=== PATIENT | female | born 2000 | race Caucasian/White ===

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

== ENCOUNTER 2021-03-29 14:14 | Emergency (ER) | payer MEDICAID ==
[2021-03-29 15:33] LABS: CORONAVIRUS 229E-RESP PCR NOT DETECTED; CORONAVIRUS HKU1-RESP PCR NOT DETECTED; CORONAVIRUS NL63-RESP PCR NOT DETECTED; CORONAVIRUS OC43-RESP PCR NOT DETECTED
[2021-03-29 15:34] LABS: B. PARAPERTUSSIS- RESP PCR PAN NOT DETECTED; B. PERTUSSIS- RESP PCR PANEL NOT DETECTED; C. PNEUMONIAE- RESP PCR PANEL NOT DETECTED; HUMAN METAPNEUMOVIRUS NOT DETECTED; INFLUENZA A- RESP PCR PANEL NOT DETECTED; INFLUENZA B - RESP PCR PANEL NOT DETECTED; M. PNEUMONIAE- RESP PCR PANEL NOT DETECTED; PARAINFLUENZA VIRUS 1 NOT DETECTED; PARAINFLUENZA VIRUS 2 NOT DETECTED; PARAINFLUENZA VIRUS 3 NOT DETECTED; PARAINFLUENZA VIRUS 4 NOT DETECTED; RHINOVIRUS/ENTEROVIRUS NOT DETECTED; RSV- RESP PCR PANEL NOT DETECTED; SARS-CoV-2 -RESP PCR PANEL DETECTED
--- NOTE | 2021-03-29 16:22 | ED Physician Documentation ---
History of Present Illness - Stated complaint Stated Complaint: congestion,migraine,ear px,dizzy,muscle aches - Chief complaint Chief Complaint: General - History obtained from History obtained from: Patient - Additonal information Additional information: 20-year-old who is fully immunized against Covid with Pfizer vaccine became acutely ill 2 days ago with typical symptoms including rhinorrhea, congestion, body aches, headache, bilateral ear pain. Also a little bit of diarrhea 2 days ago. 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, Other : None HEENT: None Psych: None Musculoskeletal: None Derm: None - Past Surgical History Past Surgical History: Yes General: Appendectomy HEENT: Tonsil/Adenoidectomy - Present Medications Home Medications: Ambulatory Orders Medication Instructions Recorded Confirmed Cyclobenzaprine HCl 5 mg PO PRN PRN 12/09/20 12/18/20 HYDROcod/ACETAM 5/325 [[place] 5/325] 1 - 2 tablet PO Q6H PRN #10 tablet 12/09/20 12/18/20 methocarbamoL [Methocarbamol] 750 mg PO PRN PRN 12/09/20 12/18/20 metroNIDAZOLE VAGINAL GEL 1 appful VG BID #70 gm 12/19/20 [Metrogel] Clindamycin [Cleocin] 300 mg PO TID 7 Days #20 cap 12/27/20 Fluconazole [Diflucan] 150 mg PO Q3D #2 tablet 12/27/20 Naproxen Sodium [Naprelan] 375 mg PO BID PRN #20 tab 12/27/20 oxyCODONE [Roxicodone] 5 mg PO Q4-6H PRN #12 tablet 12/27/20 Benzonatate [Tessalon] 200 mg PO QID PRN #20 cap 03/29/21 Ibuprofen [Motrin] 800 mg PO Q8H PRN #30 tablet 03/29/21 - Allergies Allergies/Adverse Reactions: Allergies Allergy/AdvReac Type Severity Reaction Status Date / Time amoxicillin Allergy Anaphylaxis Verified 03/29/21 14:25 Penicillins Allergy Anaphylaxis Verified 03/29/21 14:25 - Social History Does the pt smoke?: No Smoking Status: Never smoker Does the pt drink ETOH?: Yes Does the pt have substance abuse?: No - Immunizations Immunizations are current?: Yes - POLST Patient has POLST: No PD ED PE NORMAL - Vitals Vital signs reviewed: Yes - General General: Alert and oriented X 3, No acute distress - HEENT HEENT: Ears normal (TMs are normal bilaterally), Pharynx benign - Cardiac Cardiac: RRR, No murmur - Respiratory Respiratory: No respiratory distress, Clear bilaterally - Abdomen Abdomen: Non tender - Neuro Neuro: Alert and oriented X 3, Normal speech Results - Vitals Vitals: Vital Signs - 24 hr 03/29/21 03/29/21 03/29/21 14:18 17:41 19:32 Temperature 36 C L 36.6 C Heart Rate 89 90 88 Respiratory 16 16 16 Rate Blood Pressure 129/74 132/74 H 116/71 O2 Saturation 98 99 99 Oxygen O2 Source Room air - Labs Labs: Laboratory Tests 03/29/21 14:25 Nasal Adenovirus (PCR) NOT DETECTED Nasal B. parapertussis DNA (PCR) NOT DETECTED Nasal Coronavir 229E PCR NOT DETECTED Nasal Coronavir HKU1 PCR NOT DETECTED Nasal Coronavir NL63 PCR NOT DETECTED Nasal Coronavir OC43 PCR NOT DETECTED Nasal Enterovir/Rhinovir PCR NOT DETECTED Nasal Influenza B PCR NOT DETECTED Nasal Influenza A PCR NOT DETECTED Nasal Parainfluen 1 PCR NOT DETECTED Nasal Parainfluen 2 PCR NOT DETECTED Nasal Parainfluen 3 PCR NOT DETECTED Nasal Parainfluen 4 PCR NOT DETECTED Nasal RSV (PCR) NOT DETECTED Nasal B.pertussis DNA PCR NOT DETECTED Nasal C.pneumoniae (PCR) NOT DETECTED Nav Human Metapneumo PCR NOT DETECTED Nasal M.pneumoniae (PCR) NOT DETECTED Nasal SARS-CoV-2 (PCR) DETECTED A PD MEDICAL DECISION MAKING - ED course ED course: 20-year-old presents with typical symptoms of Covid and a positive test despite being immunized recently for same. After discussion she would like to go ahead with antibody therapy and was given Regeneron infusion. Departure - Departure Disposition: 01 Home, Self Care Clinical Impression: COVID-19 Condition: Good Record reviewed to determine appropriate education?: Yes Instructions: ED Viral Syndrome Prescriptions: Ibuprofen [Motrin] 800 mg PO Q8H PRN #30 tablet PRN Reason: PAIN &/OR FEVER Benzonatate [Tessalon] 200 mg PO QID PRN #20 cap PRN Reason: Cough Comments: Return anytime if worse or if new symptoms develop. Forms: Activity restrictions Discharge Date/Time: 03/29/21 19:43
[2021-03-29] MEDS ORDERED: CASIRIVIMAB/IMDEVIMAB 10 ML in SODIUM CHLORIDE 0.9% 50 ML IV ONE (18:00)
[2021-03-29 19:32] VITALS: BP 116/71
== END 2021-03-29 19:43 | disposition home or self-care (01) ==
LOC: ED 14:14
DX: U07.1 COVID-19 (principal)
CPT/HCPCS: 0202U; 99283; 99284; J7040; M0243; Q0244

== ENCOUNTER 2021-05-26 21:24 | Emergency (ER) | payer MEDICAID ==
[2021-05-26 21:32] VITALS: BP 150/84
--- NOTE | 2021-05-26 21:53 | ED Physician Documentation ---
History of Present Illness - Stated complaint Stated Complaint: L ELBOW INJURY - Chief complaint Chief Complaint: Trauma Ext - Additonal information Additional information: 20-year-old female with acute right elbow pain sustained yesterday evening when roughhousing with her partner. He tried pinning her elbow and she has had pain in it since, But only when moving it in certain ways. No swelling or ecchymosis. No history of previous left elbow injury. Patient is right arm dominant. 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, Other : None HEENT: None Psych: None Musculoskeletal: None Derm: None - Past Surgical History Past Surgical History: Yes General: Appendectomy HEENT: Tonsil/Adenoidectomy - Present Medications Home Medications: Ambulatory Orders Medication Instructions Recorded Confirmed Cyclobenzaprine HCl 5 mg PO PRN PRN 12/09/20 12/18/20 HYDROcod/ACETAM 5/325 [[place] 5/325] 1 - 2 tablet PO Q6H PRN #10 tablet 12/09/20 12/18/20 methocarbamoL [Methocarbamol] 750 mg PO PRN PRN 12/09/20 12/18/20 metroNIDAZOLE VAGINAL GEL 1 appful VG BID #70 gm 12/19/20 [Metrogel] Clindamycin [Cleocin] 300 mg PO TID 7 Days #20 cap 12/27/20 Fluconazole [Diflucan] 150 mg PO Q3D #2 tablet 12/27/20 Naproxen Sodium [Naprelan] 375 mg PO BID PRN #20 tab 12/27/20 oxyCODONE [Roxicodone] 5 mg PO Q4-6H PRN #12 tablet 12/27/20 Benzonatate [Tessalon] 200 mg PO QID PRN #20 cap 03/29/21 Ibuprofen [Motrin] 800 mg PO Q8H PRN #30 tablet 03/29/21 - Allergies Allergies/Adverse Reactions: Allergies Allergy/AdvReac Type Severity Reaction Status Date / Time amoxicillin Allergy Anaphylaxis Verified 05/26/21 21:32 Penicillins Allergy Anaphylaxis Verified 05/26/21 21:32 - Social History Does the pt smoke?: No Smoking Status: Never smoker Does the pt drink ETOH?: Yes Does the pt have substance abuse?: No - Immunizations Immunizations are current?: Yes - POLST Patient has POLST: No PD ED PE EXPANDED - Extremities Extremities: Left elbow (Normal flexion extension of the elbow against resistance. Patient is able to pronate and supinate left hand without pain elicited. There is some mild pain elicited with full extension of the elbow. No tenderness at either olecranon process.) Results - Vitals Vitals: Vital Signs - 24 hr 05/26/21 21:28 Temperature 36.5 C Heart Rate 108 H Respiratory 16 Rate Blood Pressure 150/84 H O2 Saturation 99 Oxygen O2 Source Nasal cannula PD MEDICAL DECISION MAKING - ED course Complexity details: considered differential, d/w patient ED course: 20-year-old female with acute left elbow pain sustained after roughhousing with her partner. She does not remember an inciting event while playing but developed pain shortly thereafter. Pain is only elicited when she moves it in certain ways and it is not always reproducible or reliable. No swelling or ecchymosis no fevers. I did offer x-ray imaging but she declined she is quite certain the elbow is not broken. She is requesting a sling as she finds that holding the arm in that position is helpful. She was also given an Tony bandage. Discussed likely etiology of her symptoms is an elbow sprain but if symptoms not markedly better after 1 to 2 weeks further evaluation is warranted. Departure - Departure Disposition: 01 Home, Self Care Clinical Impression: Other sprain of left elbow, initial encounter Instructions: ED Sprain Elbow Comments: Elo you do have pain in your left elbow with certain movements. You most likely have sprained it when rough housing with your partner In general I would recommend that you wear the Tony bandage on your elbow when out of bed for the next 7 to 10 days. You can take ibuprofen 600 mg with food 2-3 times a day. In most simple cases conservative care like this should help improve pain over 7 to 10 days. If not markedly better at that time your primary doctor may benefit from making a referral for you to physical therapy and/or further evaluation with advanced imaging.
== END 2021-05-26 22:05 | disposition home or self-care (01) ==
LOC: ED 21:24
DX: S53.402A Unspecified sprain of left elbow, initial encounter (principal); X58.XXXA Exposure to other specified factors, initial encounter
CPT/HCPCS: 99281; 99283

== ENCOUNTER 2021-10-20 20:41 | Outpatient (CLI) | payer MEDICAID | END 2021-10-20 20:42 | disposition EMS.NT | LOC: EMS 20:41 | DX: R19.7 Diarrhea, unspecified (principal); R11.10 Vomiting, unspecified ==

== ENCOUNTER 2022-05-20 13:56 | Outpatient (CLI) | payer MEDICAID, OTHER ==
[2022-05-20 14:42] LABS: THYROID STIMULATING HORMONE 1.2 uIU/mL (0.34-5.60)
[2022-05-20 14:44] LABS: FREE T4 (FREE THYROXINE) 0.84 ng/dL (0.58-1.64)
[2022-05-20 20:22] LABS: ESTIMATED AVERAGE GLUCOSE 97 mg/dL (70-100)
== END 2022-05-20 13:57 | disposition home or self-care (01) ==
LOC: LAB 13:56
PROVIDERS: ATTEND Nurse Practitioner
DX: E66.9 Obesity, unspecified (principal)
CPT/HCPCS: 36415; 83036; 84439; 84443

== ENCOUNTER 2022-05-24 12:51 | Outpatient (CLI) | payer OTHER ==
[2022-05-24 18:07] LABS: BILIRUBIN,URINE NEGATIVE (NEGATIVE); GLUCOSE, URINE (UA) NEGATIVE (NEGATIVE); KETONES,URINE (UA) NEGATIVE (NEGATIVE); LEUKOCYTE ESTERASE, URINE MODERATE (NEGATIVE); NITRITE,URINE NEGATIVE (NEGATIVE); OCCULT BLOOD,URINE TRACE-INTA (NEGATIVE); PH,URINE 5.5 PH (5.0-7.5); PROTEIN,URINE NEGATIVE (NEGATIVE); UROBILINOGEN,URINE 0.2 (NORMAL) E.U./dL (NORMAL)
[2022-05-24 18:10] LABS: CLARITY,URINE CLOUDY (CLEAR)
[2022-05-24 18:22] LABS: AMORPHOUS SEDIMENT,UR Marked /LPF; BACTERIA,URINE Few /HPF (None Seen); RBC,URINE 0-5 /HPF (0-5); SQUAMOUS EPITHELIAL CELL,UR MOD Squamous (<= Few); WBC,URINE >25 /HPF (0-5)
[2022-05-24 18:33] LABS: PROLACTIN 7.32 ng/mL
[2022-05-24 18:55] LABS: FOLLICLE STIMULATING HORMONE 5.95 mIU/mL; LUTEINIZING HORMONE 7.8 mIU/mL
[2022-05-25 00:03] LABS: CHLAMYDIA TRACHOMATIS DNA NEGATIVE (NEGATIVE); NEISSERIA GONORRHOEAE DNA NEGATIVE (NEGATIVE)
[2022-05-25 00:14] LABS: BACTERIAL VAGINOSIS DNA NEGATIVE (NEGATIVE); CANDIDA GLABRATA DNA NEGATIVE (NEGATIVE); CANDIDA GROUP DNA POSITIVE (NEGATIVE); CANDIDA KRUSEI DNA NEGATIVE (NEGATIVE); TRICHOMONAS VAGINALIS DNA NEGATIVE (NEGATIVE)
[2022-05-25 04:08] LABS: HBsAG SCREEN Negative (Negative); HCV AB <0.1 s/co ratio (0.0-0.9)
[2022-05-25 07:10] LABS: ESTRADIOL 28.9 pg/mL (.); PROGESTERONE 0.4 ng/mL (.)
[2022-05-25 08:09] LABS: RPR Non Reactive (Non Reactive)
[2022-05-25 11:10] LABS: HSV 1 IGG TYPE SPEC 2.75 index (0.00-0.90); HSV 2 IGG TYPE SPEC 9.04 index (0.00-0.90)
[2022-05-25 20:08] LABS: FREE TESTOSTERONE(DIRECT) 6.4 pg/mL (0.0-4.2); SEX HORM BINDING GLOB SERUM 27.6 nmol/L (24.6-122.0); TESTOSTERONE 39 ng/dL (13-71)
[2022-05-26 00:07] LABS: HIV SCREEN 4TH GENERATION Non Reactive (Non Reactive)
== END 2022-05-24 12:52 | disposition home or self-care (01) ==
LOC: LAB.N 12:51
PROVIDERS: ATTEND Nurse Practitioner
DX: E28.2 Polycystic ovarian syndrome (principal); L68.0 Hirsutism; N92.6 Irregular menstruation, unspecified; Z11.3 Encounter for screening for infections with a predominantly sexual mode of transmission; N89.8 Other specified noninflammatory disorders of vagina
CPT/HCPCS: 36415; 81001; 81514; 82397; 82627; 82670; 83001; 83002; 83498; 84144; 84146; 84270; 84402; 84403; 84443; 86592; 86695; 86696; 86803; 87086; 87340; 87389; 87491; 87591; 87661

== ENCOUNTER 2022-06-13 22:48 | Emergency (ER) | payer OTHER, MEDICAID ==
[2022-06-13 22:59] VITALS: BP 141/88
[2022-06-13 23:15] LABS: BILIRUBIN,URINE NEGATIVE (NEGATIVE); GLUCOSE, URINE (UA) NEGATIVE (NEGATIVE); KETONES,URINE (UA) NEGATIVE (NEGATIVE); LEUKOCYTE ESTERASE, URINE NEGATIVE (NEGATIVE); NITRITE,URINE NEGATIVE (NEGATIVE); OCCULT BLOOD,URINE NEGATIVE (NEGATIVE); PROTEIN,URINE NEGATIVE (NEGATIVE); UROBILINOGEN,URINE 0.2 (NORMAL) E.U./dL (NORMAL)
[2022-06-13 23:16] LABS: CLARITY,URINE CLEAR (CLEAR)
[2022-06-13 23:19] LABS: HCG UR QUAL NEGATIVE
[2022-06-13 23:24] LABS: BASOPHILS % (AUTO) 0.3 %; EOSINOPHILS # (AUTO) 0.3 10^3/uL (0.0-0.7); EOSINOPHILS % (AUTO) 1.8 %; HCT - HEMATOCRIT 39.7 % (37.0-47.0); HGB - HEMOGLOBIN 12.9 g/dL (12.0-16.0); LYMPHOCYTES # (AUTO) 2.7 10^3/uL (1.5-3.5); LYMPHOCYTES % (AUTO) 19.2 %; MEAN CORPUSCULAR HEMOGLOBIN 27.1 pg (27.0-31.0); MEAN CORPUSCULAR HGB CONC 32.5 g/dL (32.0-36.0); MEAN CORPUSCULAR VOLUME 83.4 fL (81.0-99.0); MEAN PLATELET VOLUME 10.1 fL (7.9-10.8); MONOCYTES # (AUTO) 1.2 10^3/uL (0.0-1.0); MONOCYTES % (AUTO) 8.7 %; NEUTROPHILS # (AUTO) 9.8 10^3/uL (1.5-6.6); NEUTROPHILS % (AUTO) 69.5 %; PLT - PLATELET COUNT 300 10^3/uL (130-450); RED BLOOD COUNT 4.76 10^6/uL (4.20-5.40); RED CELL DISTRIBUTION WIDTH 13.1 % (12.0-15.0); WHITE BLOOD COUNT 14.1 x10^3/uL (4.8-10.8)
[2022-06-13 23:36] LABS: ALBUMIN 4.3 g/dL (3.2-5.5); ALBUMIN/GLOBULIN RATIO 1.3 (1.0-2.2); BILIRUBIN,TOTAL 0.3 mg/dL (0.2-1.0); CALCIUM 9.3 mg/dL (8.5-10.3); CREATININE 0.7 mg/dL (0.4-1.0); POTASSIUM 4.1 mmol/L (3.5-5.0); TOTAL PROTEIN 7.5 g/dL (6.7-8.2)
--- NOTE | 2022-06-14 01:17 | ED Physician Documentation ---
PD HPI ABD PAIN - Stated complaint Stated Complaint: ABD PX - Chief complaint Chief Complaint: Abd Pain - History obtained from History obtained from: Patient - Additional information Additional information: The patient comes to the emergency department chief complaint of sudden onset of worst left pelvic pain several hours ago. She states she has a history of polycystic ovarian disease and has had left pelvic pain for the last week. She states it feels like ovarian cyst that she has had before. However, when the pain got worse this evening, she became more concerned and decided to come in. She has not had any vaginal discharge or bleeding. She has noticed that the pain for the past week has been worse when she has sexual intercourse. No fevers or chills. No dysuria. No nausea or vomiting. No other complaints at this time. Review of Systems Ten Systems: 10 systems reviewed and negative Constitutional: reports: Reviewed and negative Eyes: reports: Reviewed and negative Ears: reports: Reviewed and negative Nose: reports: Reviewed and negative Throat: reports: Reviewed and negative Cardiac: reports: Reviewed and negative Respiratory: reports: Reviewed and negative GI: reports: Abdominal Pain : reports: Reviewed and negative. 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, Other : None HEENT: None Psych: None Musculoskeletal: None Derm: None - Past Surgical History Past Surgical History: Yes General: Appendectomy HEENT: Tonsil/Adenoidectomy - Present Medications Home Medications: Ambulatory Orders Medication Instructions Recorded Confirmed Spironolactone [Aldactone] 50 mg PO DAILY 06/13/22 06/13/22 metFORMIN [Glucophage] 500 mg PO DAILY 06/13/22 06/13/22 - Allergies Allergies/Adverse Reactions: Allergies Allergy/AdvReac Type Severity Reaction Status Date / Time amoxicillin Allergy Anaphylaxis Verified 06/13/22 22:59 Penicillins Allergy Anaphylaxis Verified 06/13/22 22:59 - Social History Does the pt smoke?: No Smoking Status: Never smoker Does the pt drink ETOH?: Yes Does the pt have substance abuse?: No - Immunizations Immunizations are current?: Yes - POLST Patient has POLST: No PD ED PE NORMAL - Vitals Vital signs reviewed: Yes - General General: Alert and oriented X 3, No acute distress, Well developed/nourished - HEENT HEENT: Atraumatic, PERRL, EOMI, Moist mucous membranes - Neck Neck: Supple, no meningeal sign - Cardiac Cardiac: RRR, No murmur, Strong equal pulses - Respiratory Respiratory: No respiratory distress, Clear bilaterally - Abdomen Abdomen: Soft, Non distended, Other (Moderate left pelvic tenderness, no rebound or guarding.) - Derm Derm: Normal color, Warm and dry, No rash - Extremities Extremities: No deformity - Neuro Neuro: Alert and oriented X 3 - Psych Psych: Normal mood, Normal affect Results - Vitals Vitals: Vital Signs - 24 hr 06/13/22 06/13/22 22:56 22:59 Temperature 36.4 C L 36.5 C Heart Rate 99 99 Respiratory 18 18 Rate Blood Pressure 141/88 H 141/88 H O2 Saturation 100 100 Oxygen O2 Source Room air - Labs Labs: Laboratory Tests 06/13/22 06/13/22 06/13/22 23:08 23:15 23:15 WBC 14.1 H RBC 4.76 Hgb 12.9 Hct 39.7 MCV 83.4 MCH 27.1 MCHC 32.5 RDW 13.1 Plt Count 300 MPV 10.1 Neut # (Auto) 9.8 H Lymph # (Auto) 2.7 [place] # (Auto) 1.2 H Eos # (Auto) 0.3 Baso # (Auto) 0.0 Absolute Nucleated RBC 0.00 Nucleated RBC % 0.0 Sodium 135 Potassium 4.1 Chloride 104 Carbon Dioxide 23 Anion Gap 8.0 BUN 15 Creatinine 0.7 Estimated GFR (MDRD) 107 Glucose 98 Calcium 9.3 Total Bilirubin 0.3 AST 33 ALT 48 Alkaline Phosphatase 53 Total Protein 7.5 Albumin 4.3 Globulin 3.2 Albumin/Globulin Ratio 1.3 Lipase 42 Urine Color YELLOW Urine Clarity CLEAR Urine pH 6.0 Ur Specific [place] 1.025 Urine Protein NEGATIVE Urine Glucose (UA) NEGATIVE Urine Ketones NEGATIVE Urine Occult Blood NEGATIVE Urine Nitrite NEGATIVE Urine Bilirubin NEGATIVE Urine Urobilinogen 0.2 (NORMAL) Ur Leukocyte Esterase NEGATIVE Ur Microscopic Review NOT INDICATED Urine Culture Comments NOT INDICATED Urine HCG, Qual NEGATIVE - Rads (name of study) Pelvic ultrasound Radiology: Prelim report reviewed (Multiple cysts bilateral ovaries with largest on left ovary. No torsion.) PD MEDICAL DECISION MAKING - ED course Complexity details: reviewed results, re-evaluated patient, considered differential, d/w patient, d/w family ED course: The patient was feeling better upon reevaluation and declined any analgesia in the emergency department. She states she has Tylenol and Ultram at home and can take these if needed. We have discussed the ultrasound results and the need for follow-up with gynecology if her cyst seem to be bothering her increasingly worse. We have discussed the usual indications for return. Departure - Departure Disposition: Home, Self Care Clinical Impression: Cyst of ovary Qualifiers: Laterality: bilateral Qualified Code(s): N83.201 - Unspecified ovarian cyst, right side Condition: Stable Instructions: ED Cyst Ovarian Comments: Your ultrasound showed cysts on both of your ovaries, but the left was the largest at 3.6 x 3.9 x 5.2 cm. Another cyst was seen that was 5.2 x 2.8 x 5.2 cm. A much smaller cyst on the right ovary measured 2.6 x 2.3 x 2.4 cm. There is no evidence of ovarian torsion. At this point in time, you may take your pain medication at home, and use heat to help with the discomfort also. You will need to talk to your fixed income analyst if you feel that the symptoms are getting worse, and determine what your options are. Discharge Date/Time: 06/14/22 01:26
--- NOTE | 2022-06-14 01:35 | Ultrasound Report ---
PROCEDURE: Pelvic w/Transvag+Doppler Comp INDICATIONS: sudden onset pelvic pain, h/o cysts TECHNIQUE: Real-time scanning was performed of the pelvic organs, with image documentation. Additional endovagi nal scanning was necessary due to incomplete visualization of the adnexal and endometrial structures by transabdominal scanning. Doppler interrogation was performed of the ovaries bilaterally. COMPARISON: None. FINDINGS: Uterus: Uterus is anteverted and measures 8.7 x 4.2 x 5.6 cm. Endometrium measures up to 0.7 cm. Ovaries: The right ovary measures 2.6 x 2.3 x 2.4 cm for volume of 7.6 mL and the left ovary measure s 3.6 x 3.9 x 5.2 cm for volume of 37.4 mL. There is a thick-walled cyst within the left ovary with a n internal fluid debris level measuring approximate 5.2 x 2.8 x 5.2 cm. No internal vascularity and c olor Doppler interrogation. There is patent arterial and venous flow demonstrated in the ovaries. Other: There is a moderate amount of free fluid in the pelvis most prominent within the left adnexa. IMPRESSION: 1. Thick-walled left ovarian cyst with internal fluid debris level is suggestive of a hemorrhagic cys t. Consider follow-up ultrasound in 6 weeks to demonstrate resolution. 2. Moderate amount of free fluid in the pelvis is nonspecific but may reflect sequelae of cyst ruptur e. 3. No evidence of ovarian torsion. Reviewed by: Saud Fierro MD on 06/14/2022 1:34 AM PST Approved by: Saud Fierro MD on 06/14/2022 1:34 AM PST Station ID: [id number]
== END 2022-06-14 01:26 | disposition home or self-care (01) ==
LOC: ED 22:48
DX: N83.201 Unspecified ovarian cyst, right side (principal); N83.202 Unspecified ovarian cyst, left side
CPT/HCPCS: 36415; 80053; 81001; 81003; 81025; 83690; 85025; 87086; 93975; 99282; 99284

== ENCOUNTER 2022-06-20 11:21 | Outpatient (CLI) | payer OTHER | END 2022-06-20 11:22 | disposition home or self-care (01) | LOC: LAB.N 11:21 | PROVIDERS: ATTEND Nurse Practitioner | DX: Z32.00 Encounter for pregnancy test, result unknown (principal) | CPT/HCPCS: 36415; 84702 ==

== ENCOUNTER 2022-07-23 08:00 | Outpatient (CLI) | payer OTHER ==
[2022-07-23 21:30] LABS: BACTERIAL VAGINOSIS DNA POSITIVE (NEGATIVE); CANDIDA GROUP DNA POSITIVE (NEGATIVE); CANDIDA KRUSEI DNA NEGATIVE (NEGATIVE); TRICHOMONAS VAGINALIS DNA NEGATIVE (NEGATIVE)
[2022-07-23 21:31] LABS: CANDIDA GLABRATA DNA NEGATIVE (NEGATIVE)
== END 2022-07-23 23:59 | disposition home or self-care (01) ==
LOC: LAB.N 08:00
PROVIDERS: ATTEND Physician Assistant
DX: R30.0 Dysuria (principal)
CPT/HCPCS: 81514; 87086

== ENCOUNTER 2022-08-05 22:15 | Outpatient (CLI) | payer OTHER ==
--- NOTE | 2022-08-06 03:11 | Ultrasound Report ---
PROCEDURE: Pelvic w/Transvaginal INDICATIONS: OVARIAN CYST TECHNIQUE: Real-time scanning was performed of the pelvic organs, with image documentation. Additional endovagi nal scanning was necessary due to incomplete visualization of the adnexal and endometrial structures by transabdominal scanning. COMPARISON: Pelvic ultrasound 06/13/2022. FINDINGS: Uterus: Uterus is retroflexed and measures 7.7 x 4.1 x 4.8 cm. The endometrium measures up to 0.9 cm in thickness. Ovaries: The right ovary measures 2.6 x 2.7 x 3.1 cm, with a calculated ovarian volume of 11.6 cc. The left ovary measures 3.1 x 1.6 x 2.5 cm, with a calculated ovarian volume of 6.4 cc. The ovaries have a normal sonographic appearance. Greater than 12 follicles can be seen in each ovary. No adnex al masses are identified. A thick-walled cyst seen on the prior study within the left ovary has demon strated resolution. Other: There is a minimal amount of pelvic free fluid appears within physiologic limits. IMPRESSION: 1. Interval resolution of the previously visualized left ovarian cyst. 2. Multiple small peripherally distributed ovarian follicles demonstrated in the ovaries. The finding s are suggestive of polycystic ovarian syndrome in the appropriate clinical context. Reviewed by: Saud Fierro MD on 08/06/2022 3:10 AM PST Approved by: Saud Fierro MD on 08/06/2022 3:10 AM PST Station ID: [id number]
== END 2022-08-05 22:16 | disposition home or self-care (01) ==
LOC: DI 22:15
PROVIDERS: ATTEND Nurse Practitioner
DX: Z09 Encounter for follow-up examination after completed treatment for conditions other than malignant neoplasm (principal); Z87.42 Personal history of other diseases of the female genital tract

== ENCOUNTER 2022-10-16 12:23 | Outpatient (CLI) | payer OTHER | END 2022-10-16 12:24 | disposition home or self-care (01) | LOC: LAB 12:23 | PROVIDERS: ATTEND Obstetrics & Gynecology | DX: Z32.01 Encounter for pregnancy test, result positive (principal) | CPT/HCPCS: 36415; 84702 ==

== ENCOUNTER 2022-12-17 08:00 | Outpatient (CLI) | payer OTHER ==
[2022-12-17 21:11] LABS: BACTERIAL VAGINOSIS DNA NEGATIVE (NEGATIVE); CANDIDA GLABRATA DNA NEGATIVE (NEGATIVE); CANDIDA GROUP DNA NEGATIVE (NEGATIVE); CANDIDA KRUSEI DNA NEGATIVE (NEGATIVE); TRICHOMONAS VAGINALIS DNA NEGATIVE (NEGATIVE)
== END 2022-12-17 23:59 | disposition home or self-care (01) ==
LOC: LAB.N 08:00
PROVIDERS: ATTEND Physician Assistant Medical
DX: N76.0 Acute vaginitis (principal)
CPT/HCPCS: 81514

== ENCOUNTER 2023-04-24 08:00 | Outpatient (CLI) | payer OTHER ==
[2023-04-24 20:00] LABS: BASOPHILS % (AUTO) 0.2 %; EOSINOPHILS # (AUTO) 0.4 10^3/uL (0.0-0.7); EOSINOPHILS % (AUTO) 3.5 %; HCT - HEMATOCRIT 41.4 % (37.0-47.0); HGB - HEMOGLOBIN 13.2 g/dL (12.0-16.0); LYMPHOCYTES # (AUTO) 1.9 10^3/uL (1.5-3.5); LYMPHOCYTES % (AUTO) 15.9 %; MEAN CORPUSCULAR HEMOGLOBIN 27.8 pg (27.0-31.0); MEAN CORPUSCULAR HGB CONC 31.9 g/dL (32.0-36.0); MEAN CORPUSCULAR VOLUME 87.3 fL (81.0-99.0); MEAN PLATELET VOLUME 10.6 fL (7.9-10.8); MONOCYTES # (AUTO) 1.4 10^3/uL (0.0-1.0); MONOCYTES % (AUTO) 11.2 %; NEUTROPHILS # (AUTO) 8.3 10^3/uL (1.5-6.6); PLT - PLATELET COUNT 322 10^3/uL (130-450); RED BLOOD COUNT 4.74 10^6/uL (4.20-5.40); RED CELL DISTRIBUTION WIDTH 12.8 % (12.0-15.0); WHITE BLOOD COUNT 12.1 x10^3/uL (4.8-10.8)
[2023-04-24 20:14] LABS: CALCIUM 9.9 mg/dL (8.5-10.3); CREATININE 0.7 mg/dL (0.6-1.3); POTASSIUM 4.2 mmol/L (3.5-4.5)
== END 2023-04-24 23:59 | disposition home or self-care (01) ==
LOC: LAB.S 08:00
PROVIDERS: ATTEND Physician Assistant
DX: E28.2 Polycystic ovarian syndrome (principal); R42 Dizziness and giddiness; R30.0 Dysuria
CPT/HCPCS: 36415; 80048; 85025; 87086

== ENCOUNTER 2023-05-04 10:22 | Outpatient (CLI) | payer OTHER ==
[2023-05-04 14:44] LABS: NEISSERIA GONORRHOEAE DNA NEGATIVE (NEGATIVE)
[2023-05-04 14:46] LABS: CHLAMYDIA TRACHOMATIS DNA POSITIVE (NEGATIVE)
[2023-05-04 22:29] LABS: BACTERIAL VAGINOSIS DNA NEGATIVE (NEGATIVE); CANDIDA GLABRATA DNA NEGATIVE (NEGATIVE); CANDIDA GROUP DNA NEGATIVE (NEGATIVE); CANDIDA KRUSEI DNA NEGATIVE (NEGATIVE); TRICHOMONAS VAGINALIS DNA NEGATIVE (NEGATIVE)
== END 2023-05-04 10:23 | disposition home or self-care (01) ==
LOC: LAB.N 10:22
PROVIDERS: ATTEND Physician Assistant
DX: R30.0 Dysuria (principal)
CPT/HCPCS: 81514; 87491; 87591; 87661

== ENCOUNTER 2024-01-04 04:00 | Emergency (ER) | payer MEDICAID, OTHER ==
[2024-01-04 04:27] LABS: BILIRUBIN,URINE NEGATIVE (NEGATIVE); GLUCOSE, URINE (UA) NEGATIVE (NEGATIVE); KETONES,URINE (UA) NEGATIVE (NEGATIVE); LEUKOCYTE ESTERASE, URINE LARGE (NEGATIVE); NITRITE,URINE NEGATIVE (NEGATIVE); OCCULT BLOOD,URINE SMALL (NEGATIVE); PROTEIN,URINE NEGATIVE (NEGATIVE); UROBILINOGEN,URINE 0.2 (NORMAL) E.U./dL (NORMAL)
[2024-01-04 04:29] LABS: CLARITY,URINE HAZY (CLEAR); HCG UR QUAL NEGATIVE
[2024-01-04 04:33] LABS: BACTERIA,URINE Few /HPF (None Seen); SQUAMOUS EPITHELIAL CELL,UR MOD Squamous (<= Few)
--- NOTE | 2024-01-04 04:57 | ED Physician Documentation ---
History of Present Illness - Stated complaint Stated Complaint: - Chief complaint Chief Complaint: UTI - History obtained from History obtained from: Patient - Additonal information Additional information: 23yF p/w whitish discharge and erythema to vulva X 2 days. denies hematuria or increased frequency. +dysuria. denies fever or abd pain. 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, Other : None HEENT: None Psych: None Musculoskeletal: None Derm: None - Past Surgical History Past Surgical History: Yes General: Appendectomy HEENT: Tonsil/Adenoidectomy - Present Medications Home Medications: Ambulatory Orders Medication Instructions Recorded Confirmed Spironolactone [Aldactone] 50 mg PO DAILY 06/13/22 01/04/24 metFORMIN [Glucophage] 500 mg PO DAILY 06/13/22 01/04/24 Fluconazole 150 mg PO Q3D #2 tablet 01/04/24 Phentermine HCl 15 mg PO DAILY 01/04/24 01/04/24 Topiramate [Topamax] 25 mg PO DAILY 01/04/24 01/04/24 - Allergies Allergies/Adverse Reactions: Allergies Allergy/AdvReac Type Severity Reaction Status Date / Time amoxicillin Allergy Anaphylaxis Verified 01/04/24 04:19 Penicillins Allergy Anaphylaxis Verified 01/04/24 04:19 - Social History Does the pt smoke?: No Smoking Status: Never smoker Does the pt drink ETOH?: Yes Does the pt have substance abuse?: No - Immunizations Immunizations are current?: Yes - POLST Patient has POLST: No PD ED PE NORMAL - Vitals Vital signs reviewed: Yes - General General: Alert and oriented X 3, No acute distress, Well developed/nourished - HEENT HEENT: Atraumatic, PERRL, EOMI - Abdomen Abdomen: Non tender, Non distended - Female Female : Pt declined Results - Vitals Vitals: Vital Signs - 24 hr 01/04/24 04:09 Temperature 36.5 C Heart Rate 65 Respiratory 18 Rate Blood Pressure 130/76 O2 Saturation 99 Oxygen O2 Source Room air - Labs Labs: Laboratory Tests 01/04/24 01/04/24 04:15 04:15 Urine Color YELLOW Urine Clarity HAZY Urine pH 6.0 Ur Specific [place] 1.025 Urine Protein NEGATIVE Urine Glucose (UA) NEGATIVE Urine Ketones NEGATIVE Urine Occult Blood SMALL H Urine Nitrite NEGATIVE Urine Bilirubin NEGATIVE Urine Urobilinogen 0.2 (NORMAL) Ur Leukocyte Esterase LARGE H Urine RBC 6-10 H Urine WBC 6-10 H Ur Squamous Epith Cells MOD Squamous H Urine Bacteria Few Urine Culture Comments NOT INDICATED Urine HCG, Qual NEGATIVE PD Medical Decision Making - ED course ED course: 23yF p/w yeast infection X 2 days refractory to OTC topical medicine. patient having trouble sleeping due to pain. topical lidocaine provided along with IM toradol with improvement. return precautions given. oral antifungal provided. Departure - Departure Disposition: Home, Self Care Clinical Impression: Yeast infection Condition: Stable Instructions: Vaginal Infec Yeast Prescriptions: Fluconazole 150 mg PO Q3D #2 tablet Comments: You were seen in the emergency department for Severe yeast infection. You should take the oral fluconazole 150 mg pill in 2 sequential doses given 3 days apart as prescribed. Prescription sent to [email or web address]. Please follow-up with your primary care provider and return to the emergency dep artment if you have any new or worsening symptoms or other concerns.
[2024-01-04] MEDS: LIDOCAINE OINTMENT 5% 35.44 GM TUBE TOP STA (05:19)
[2024-01-04] MEDS: KETOROLAC 30 MG/ML VIAL IM STA (05:19)
[2024-01-04 05:32] VITALS: BP 128/77; O2SAT 98
== END 2024-01-04 05:31 | disposition home or self-care (01) ==
LOC: ED 04:00
DX: B37.31 Acute candidiasis of vulva and vagina (principal); Z79.84 Long term (current) use of oral hypoglycemic drugs; Z79.899 Other long term (current) drug therapy
CPT/HCPCS: 81001; 81025; 96372; 99283; A9270; 87086